=== PATIENT | male | born 1960 | race Caucasian/White ===

== ENCOUNTER → 2021-04-04 08:15 | Outpatient (BNVA) | payer BC, SELFPAY | PROVIDERS: Visit Provider Nurse Practitioner Family | DX: I10 Essential (primary) hypertension (principal); K21.9 Gastro-esophageal reflux disease without esophagitis; K64.9 Unspecified hemorrhoids | CPT/HCPCS: 80053; 80061; 82306; 82607; 84443; 85025 ==

== ENCOUNTER → 2021-06-20 10:08 | Outpatient (BNVA) | payer MEDICAID, SELFPAY | PROVIDERS: Visit Provider Nurse Practitioner Family | DX: Z20.822 Contact with and (suspected) exposure to COVID-19 (principal); Z11.52 Encounter for screening for COVID-19 | CPT/HCPCS: 87635 ==

== ENCOUNTER → 2021-09-17 10:12 | Outpatient (BNVA) | payer MEDICAID, SELFPAY | PROVIDERS: Visit Provider Nurse Practitioner Family | DX: I10 Essential (primary) hypertension (principal); G62.9 Polyneuropathy, unspecified; R07.9 Chest pain, unspecified; G47.00 Insomnia, unspecified; E78.00 Pure hypercholesterolemia, unspecified; E55.9 Vitamin D deficiency, unspecified; G89.29 Other chronic pain; K21.9 Gastro-esophageal reflux disease without esophagitis; M54.59 Other low back pain; Z68.27 Body mass index [BMI] 27.0-27.9, adult; F17.210 Nicotine dependence, cigarettes, uncomplicated | CPT/HCPCS: 80053; 80061 ==

== ENCOUNTER → 2021-12-18 11:47 | Outpatient (BNVA) | payer MEDICAID, SELFPAY | PROVIDERS: Visit Provider Nurse Practitioner Family | DX: E55.9 Vitamin D deficiency, unspecified (principal); I10 Essential (primary) hypertension; K21.9 Gastro-esophageal reflux disease without esophagitis; G47.00 Insomnia, unspecified; M79.10 Myalgia, unspecified site; M25.50 Pain in unspecified joint; M25.559 Pain in unspecified hip; M25.569 Pain in unspecified knee; M54.9 Dorsalgia, unspecified; E78.00 Pure hypercholesterolemia, unspecified; G62.9 Polyneuropathy, unspecified | CPT/HCPCS: 80053; 85651; 86140; 86200; 86431; 86705; 86706; 86709; 86803; 87340 ==

== ENCOUNTER → 2022-04-17 13:07 | Outpatient (BNVA) | payer MEDICAID, SELFPAY | PROVIDERS: Visit Provider Nurse Practitioner Family | DX: Z12.5 Encounter for screening for malignant neoplasm of prostate (principal); E78.00 Pure hypercholesterolemia, unspecified; G62.9 Polyneuropathy, unspecified; E55.9 Vitamin D deficiency, unspecified; I10 Essential (primary) hypertension; R10.9 Unspecified abdominal pain; N40.0 Benign prostatic hyperplasia without lower urinary tract symptoms; R11.0 Nausea; K57.92 Diverticulitis of intestine, part unspecified, without perforation or abscess without bleeding; U07.1 COVID-19 | CPT/HCPCS: 80053; 80061; 82306; G0103 ==

== ENCOUNTER → 2022-04-28 12:06 | Outpatient (BNVA) | payer MEDICAID, SELFPAY | PROVIDERS: Visit Provider Nurse Practitioner Family | DX: R11.0 Nausea (principal); K57.92 Diverticulitis of intestine, part unspecified, without perforation or abscess without bleeding; K58.9 Irritable bowel syndrome, unspecified; K59.00 Constipation, unspecified; R10.9 Unspecified abdominal pain; R93.5 Abnormal findings on diagnostic imaging of other abdominal regions, including retroperitoneum | CPT/HCPCS: 80053; 82150; 83690 ==

== ENCOUNTER → 2022-08-20 11:09 | Outpatient (BNVA) | payer MEDICAID, SELFPAY | PROVIDERS: Visit Provider Nurse Practitioner Family | DX: R53.83 Other fatigue (principal); R53.1 Weakness; F32.A Depression, unspecified; R51.9 Headache, unspecified | CPT/HCPCS: 80053; 80061; 82306; 84403; 84443 ==

== ENCOUNTER → 2023-01-01 13:44 | Outpatient (BNVA) | payer MEDICAID, SELFPAY | PROVIDERS: Visit Provider Nurse Practitioner Family | DX: R53.1 Weakness (principal); R53.83 Other fatigue; E55.9 Vitamin D deficiency, unspecified; E78.5 Hyperlipidemia, unspecified | CPT/HCPCS: 80053; 80061; 82306; 82607; 82746; 84402; 84403 ==

== ENCOUNTER 2023-01-20 12:20 | Outpatient (CLI) | payer MEDICAID, SELFPAY ==
--- NOTE | 2023-01-20 12:27 | MR_ITS ---
WS: [id number] MRI THORACIC SPINE with and without contrast. HISTORY: PAIN/NUMBNESS/SPINAL TENDERNESS COMPARISON: None available. TECHNIQUE: Multiplanar sequences are performed in sagittal and axial planes. Postcontrast imaging. Mu ltiHance 20 mL. Very mild increase in thoracic kyphosis. Disc spaces are very mildly narrowed and desiccated througho ut. No fracture or marrow edema. T1-2: Normal. T2-3: Normal. T3-4: Normal. T4-5: Normal. T5-6: Shallow RIGHT paracentral disc protrusion with mild deformity the ventral CSF and cord. Mild f oraminal stenosis and facet arthritis. T6-7: Shallow LEFT paracentral disc protrusion. T7-8: Shallow RIGHT paracentral disc protrusion and mild facet arthritis. T8-9: Bilateral facet arthritis and foraminal narrowing. T9-10: Mild foraminal narrowing and facet arthritis. T10-11: Mild RIGHT and moderate LEFT foraminal stenosis. LEFT foraminal nerve root sleeve diverticul um. T11-12: Bilateral mild foraminal stenosis at the LEFT nerve root sleeve diverticulum. No discitis or osteomyelitis. No enhancement along the cord. No masses. MR/MR thoracic spine wo/w [id number] IMPRESSION: 1. No significant high-grade central or foraminal stenosis. 2. Multiple small disc protrusions as above. Most significant disc protrusion at T5-6 causing mild deformity of the ventral CSF and cord. 3. Facet joint arthritis and foraminal narrowing from T5-6 through T11-12. Mos t significant facet arthritis at T10-11. 4. No cord enhancement.
--- NOTE | 2023-01-20 12:27 | MR_ITS ---
WS: [id number] MRI LUMBAR SPINE NONCONTRAST HISTORY: PAIN/TENDERNESS/SPINAL TENDERNESS COMPARISON: None available. TECHNIQUE: Sagittal and axial multisequence imaging is submitted. Mild disc bulging and facet arthropathy in the cervical spine. Component of cervical stenosis at C4-5 , C5-6 and C6-7. Normal lumbar alignment with no compression fractures or marrow edema. Disc spaces and vertebral body heights are well-preserved. Conus terminates normally at L1-2 disc level. L1-L2: Bilateral facet arthritis, RIGHT greater than LEFT. No stenosis. Ligamentum flavum and facet a rthritis. No high-grade stenosis. L2-L3: Mild annular disc bulging with mild disc encroachment upon the subarticular recesses and jann inal narrowing. Mild facet arthritis. No significant stenosis. L3-L4: Mild annular disc bulging encroaching upon the subarticular recesses and the traversing L4 ner ve roots. Mild foraminal narrowing. Moderate facet arthritis. L4-L5: Mild annular disc bulging with a disc encroaching upon the subarticular recesses and impinging upon the traversing L4 nerve roots. Moderate ligamentum flavum and facet arthritis. Mild foraminal s tenosis. L5-S1: Central disc protrusion. Mild deformity the ventral thecal sac. No disc contacting the S1 nerv e roots. Bilateral mild facet arthritis. Paravertebral soft tissues are normal. MR/MR lumbar spine wo con* [id number] IMPRESSION: 1. No high-grade central or foraminal stenosis. 2. Multilevel mild to moderate facet joint arthritis throughout the lumbar spi ne. 3. Mild encroachment upon the subarticular recesses at L3-4 and L4-5. No signi ficant stenosis. Most significant impingement upon the traversing L4 nerve root s. 4. No focal disc protrusions.
[2023-01-20] MEDS: gadobenate dimeglumine 20 mL vial IV (14:24)
== END 2023-01-20 12:21 | disposition home or self-care (01) ==
PROVIDERS: PCP Nurse Practitioner Family; Visit Provider Nurse Practitioner Family
DX: M51.24 Other intervertebral disc displacement, thoracic region (principal); G62.9 Polyneuropathy, unspecified; M47.814 Spondylosis without myelopathy or radiculopathy, thoracic region; M48.04 Spinal stenosis, thoracic region; M47.817 Spondylosis without myelopathy or radiculopathy, lumbosacral region
CPT/HCPCS: 72148; 72157; 80053; 80061; 82306; 82607; 82746; 84402; 84403; A9577

== ENCOUNTER → 2023-04-14 11:06 | Outpatient (BNVA) | payer MEDICAID, SELFPAY | PROVIDERS: PCP Nurse Practitioner Family; Visit Provider Nurse Practitioner Family | DX: I10 Essential (primary) hypertension (principal) | CPT/HCPCS: 80053 ==

== ENCOUNTER → 2023-09-28 10:56 | Outpatient (BNVA) | payer MEDICAID, SELFPAY | PROVIDERS: PCP Nurse Practitioner Family; Visit Provider Nurse Practitioner Family | DX: Z12.5 Encounter for screening for malignant neoplasm of prostate (principal); E78.5 Hyperlipidemia, unspecified; E55.9 Vitamin D deficiency, unspecified; F32.A Depression, unspecified; I10 Essential (primary) hypertension | CPT/HCPCS: 80053; 80061; 85025; G0103 ==

== ENCOUNTER → 2023-11-10 10:25 | Outpatient (BNVA) | payer MEDICAID, SELFPAY | PROVIDERS: PCP Nurse Practitioner Family; Visit Provider Nurse Practitioner Family | DX: M25.50 Pain in unspecified joint (principal) | CPT/HCPCS: 80053; 85025; 85651; 86038; 86140; 86200; 86431 ==

== ENCOUNTER 2024-03-31 10:56 | Emergency (ER) | payer MEDICAID, SELFPAY ==
[2024-03-31 11:08] VITALS: BP 143/91; PULSE 75; RESP 18; TEMP 36.7; O2SAT 95; BMI 27.3
--- NOTE | 2024-03-31 11:09 | ECG_ITS ---
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 Measurements Intervals [place] Rate: 74 P: 72 MO: 167 QRS: 42 QRSD: 94 T: 68 QT: 390 QTc: 434 Interpretive Statements SINUS RHYTHM POSSIBLE LEFT ATRIAL ENLARGEMENT [-0.1mV P-WAVE IN V1/V2] NONSPECIFIC T-WAVE ABNORMALITY INTERPRETATION BASED ON A DEFAULT AGE OF 40 YEARS No previous ECG available for comparison Electronically Signed On 04-01-2024 18:06:42 CDT by Janeen Cota M.D. [email or web address] regional medical [email or web address] medical [email or web address]/store/[id number] f
--- NOTE | 2024-03-31 11:09 | XR_ITS ---
WS: [id number] Exam: XR chest 1V portable [id number] Date/Time of Exam: 03/31/2024 11:23 AM Reason For Exam: cp No priors. The lungs are fully inflated and clear. Normal cardiomediastinal silhouette. No pleural effusions. Si gns of median sternotomy with wires and plate and screw fixation. Bony structures are intact. XR/XR chest 1V portable [id number] IMPRESSION: 1. No acute cardiopulmonary process.
--- NOTE | 2024-03-31 11:18 | ED_ITS ---
HPI - General Adult 2 General: Chief complaint: General Medical Stated complaint: high BP Time Seen by Provider: 03/31/24 11:00 Source: patient Mode of arrival: ambulatory Limitations: no limitations History of Present Illness: 63-year-old male has a history of lazo ry disease. States over the last week he has been having some hypertension along with intermittent chest pains send the pains been sharp he had some pain last night denies any pain currently denies any shortness of breath denies any vomiting or diarrhea. Associated symptoms: Reports chest pain; Deny dyspnea, headache(s), nausea, rash or vomiting Related Data Home Medications Medication Instructions Recorded Confirmed amiodarone 200 mg tablet 200 mg PO DAILY 03/31/24 03/31/24 aspirin 81 mg tablet,delayed 81 mg PO QAM 03/31/24 03/31/24 release diphenhydramine HCl 25 mg capsule 50 mg PO BID PRN allergies 03/31/24 03/31/24 (Benadryl) esomeprazole magnesium 20 mg 20 mg PO DAILY 03/31/24 03/31/24 capsule,delayed release (Nexium 24HR) gabapentin 400 mg capsule 800 mg PO BID 03/31/24 03/31/24 simvastatin 20 mg tablet 20 mg PO QPM 03/31/24 03/31/24 tamsulosin 0.4 mg capsule (Flomax) 0.4 mg PO QAM 03/31/24 03/31/24 tizanidine 4 mg tablet 4 mg PO TID PRN Muscle Spasticity 03/31/24 03/31/24 Previous Rx's Medication Instructions Recorded ergocalciferol (vitamin D2) 1,250 1,250 mcg PO .weekly #12 caps 03/23/24 mcg (50,000 unit) capsule lisinopril 10 mg tablet 10 mg PO DAILY 90 days #90 tabs 03/23/24 nitroglycerin 0.4 mg sublingual 0.4 mg sublingual Q5M PRN chest 03/31/24 tablet pain #20 tabs Allergies Allergy/AdvReac Type Severity Reaction Status Date / Time Penicillins Allergy ALGY-Anaphy Verified 08/20/23 10:44 laxis Review of Systems 2 Const: Denies: fever(s), chills, body aches or change in appetite ENMT: Denies: throat pain or dental pain Card: Reports: chest pain Resp: Denies: dyspnea GI: Denies: abdominal pain, nausea, vomiting or diarrhea : Denies: dysuria Musc: Denies: neck pain or back pain Skin/Breast: Denies: rash Neuro: Denies: headache(s) Psych: Denies: depression Sb/Lymph: Denies: easy bruising All/Imm: Denies: urticaria PFSH ED 2 PFSH: Medical History History of hiatal hernia Chronic pain GERD (gastroesophageal reflux disease) Hypertension Surgical History Status post colonoscopy History of left inguinal hernia repair Hx of arthroscopy of right knee Hx of hernia repair Family History Father , prostate CAD (coronary artery disease) Cancer Mother , age 56; lung CAD (coronary artery disease) Cancer Denies family history of Diabetes Clotting disorder Psychiatric illness Anesthesia complication Bleeding disorder Hypertension Stroke Social History Smoking and tobacco/nicotine status: never used tobacco/nicotine Quit status (tobacco/nicotine): has quit using Former quit date comment: smoked 15 yrs Second hand smoke exposure: Yes Alcohol intake: current Alcohol intake frequency: few times a week Alcohol type: beer Substance/Drug Use: never Caregiver/support person: Yes Lives independently: Yes Household members: spouse Marital status: service: No Current occupational status: disabled Current gender identity: Male Special lenin needs: No Agree to transfusion: Yes Physical Exam 2 Const: COMMON NORMALS: no acute distress, patient oriented x3 and healthy appearing HENMT: COMMON NORMALS: normocephalic and atraumatic HEAD & SCALP: n ormocephalic and atraumatic Neck/C-Spine: COMMON NORMALS: full ROM and supple Chest: COMMONS NORMALS: normal inspection of the chest and normal palpation of entire chest wall Resp: COMMON NORMALS: normal respiratory effort, No retractions, No use of accessory muscles and clear to auscultation bilaterally AUSCULTATION: clear to auscultation bilaterally Cardio: COMMON NORMALS: regular rate, regular rhythm and No murmurs present (Cardio) RATE: regular rate RHYTHM: regular rhythm GI: COMMON NORMALS: Normal to inspection, nondistended, normoactive bowel sounds present, Soft to palpation, non-tender and no masses PALPATION: Yes Soft to palpation Extremity: COMMON NORMALS: normal to inspection and full ROM Neuro: COMMON NORMALS: patient oriented x3, moves all extremities and no focal motor deficits Psych: COMMON NORMALS: mental status grossly normal, Normal thought process present and cooperative THOUGHT PROCESS: Normal thought process present Skin: COMMON NORMALS: no rashes or lesions noted and no wounds GENERAL SKIN EXAM: no rashes or lesions noted Course 2 Vital Signs: Vital signs: Vital Signs Temperature 98.1 F 03/31/24 11:08 Pulse Rate 65 03/31/24 13:51 Respiratory Rate 18 03/31/24 13:03 Blood Pressure 127/76 03/31/24 13:03 Pulse Oximetry 95 03/31/24 13:03 Oxygen Delivery Me thod Room Air 03/31/24 12:18 MDM - General Adult Medical Decision Making Patient presents for chest pain has been going on for weeks atypical his troponins here are negative he has no signs of ACS no signs of dissection we will get him follow-up with cardiology he is to return if worsening he understands agrees plan Medical Records I reviewed the patient's medical records. Lab Data I reviewed the patient's lab results. 03/31/24 11:09 03/31/24 11:09 Radiology Impressions Chest X-Ray 03/31/24 11:09 IMPRESSION: 1. No acute cardiopulmonary process. Laboratory Results WBC 8.55 10^3/uL (3.29-11.43) 03/31/24 11:09 RBC 5.25 10^6/uL (3.85-5.65) 03/31/24 11:09 Hgb 16.60 g/dL (11.27-16.99) 03/31/24 11:09 Hct 46.1 % (37-53) 03/31/24 11:09 MCV 87.8 fl (82-101) 03/31/24 11:09 MCH 31.6 pg (27-33) 03/31/24 11:09 MCHC 36.0 g/dL (30-55) 03/31/24 11:09 RDW 11.8 % (12.1-15.1) L 03/31/24 11:09 Plt Count 209 10^3/cmm (157-399) 03/31/24 11:09 MPV 9.3 fL (7.4-10.4) 03/31/24 11:09 Neut % (Auto) 56.7 % 03/31/24 11:09 Lymph % (Auto) 30.5 % 03/31/24 11:09 [place] % (Auto) 5.3 % 03/31/24 11:09 Eos % (Auto) 6.2 % 03/31/24 11:09 Baso % (Auto) 1.1 % 03/31/24 11:09 Neut # (Auto) 4.85 10^3/uL (1.8-7.7) 03/31/24 11:09 Lymph # (Auto) 2.6 10^3/uL (0.8-4.8) 03/31/24 11:09 [place] # (Auto) 0.5 10^3/uL (0.2-0.9) 03/31/24 11:09 Eos # (Auto) 0.5 10^3/uL (0.0-0.8) 03/31/24 11:09 Baso # (Auto) 0.1 10^3/uL (0.0-0.1) 03/31/24 11:09 Nucleated RBC % (auto) 0 % 03/31/24 11:09 Nucleated RBCs # 0.0 /100WBC 03/31/24 11:09 PT 13.00 SECONDS (12.1-14.9) 03/31/24 11:09 INR 0.95 (0.8-1.2) 03/31/24 11:09 Sodium 139 mmol/L (136-145) 03/31/24 11:09 Potassium 3.5 mmol/L (3.5-5.1) 03/31/24 11:09 Chloride 101 mmol/L (98-107) 03/31/24 11:09 Carbon Dioxide 24 mmol/L (22-29) 03/31/24 11:09 Anion Gap 17.5 (5-19) 03/31/24 11:09 BUN 17 mg/dL (8-23) 03/31/24 11:09 Creatinine 1.0 mg/dL (0.7-1.2) 03/31/24 11:09 GFR Calculation 75.7 mL/min (90-130) L 03/31/24 11:09 Glucose 134 mg/dL (65-115) H 03/31/24 11:09 Calculated Osmolality 292 mOsm/kg (285-295) 03/31/24 11:09 Calcium 8.9 mg/dL (8.5-10.5) 03/31/24 11:09 Total Bilirubin 0.7 mg/dL (0.15-1.2) 03/31/24 11:09 AST 22 U/L (0-40) 03/31/24 11:09 ALT 25 U/L (0-41) 03/31/24 11:09 Alkaline Phosphatase 67 U/L (40-130) 03/31/24 11:09 Troponin T Baseline < 6 ng/L (0-15) 03/31/24 11:09 Troponin T 120 Minute 6.28 ng/L (0-15) 03/31/24 13:41 Delta Troponin T 0.30053 ABS# (0-10) 03/31/24 13:41 Total Protein 7.0 g/dL (6.6-8.7) 03/31/24 11:09 Albumin 4.1 g/dL (3.5-5.2) 03/31/24 11:09 Globulin 2.9 g/dL (1.3-4.6) 03/31/24 11:09 Lipase 29 U/L (13-60) 03/31/24 11:09 All radiology interpretation(s) finalized by discharge EKG Data EKG 1: I personally reviewed and interpreted this EKG as follows: EKG interpretation date: 03/31/24 EKG interpretation time: 11:05 Interpretation: nsr hr [address] or t wave abnormalities qrs 94 qtc 418 Computer generated interpretation: Chest X-Ray 03/31/24 11:09 IMPRESSION: 1. No acute cardiopulmonary process. EKG 2: I personally reviewed and interpreted this EKG as follows: EKG interpretation date: 03/31/24 EKG interpretation time: 12:57 Interpretation: sinus yamilex hr [address] elevation qrs 93 qtc 438 Computer generated interpretation: Chest X-Ray 03/31/24 11:09 IMPRESSION: 1. No acute cardiopulmonary process. Discharge Plan Discharge Patient Disposition: Home Clinical Impression: Chest pain Condition: Stable Prescriptions: Continued nitroglycerin 0.4 mg tablet, sublingual 0.4 mg sublingual Q5M PRN (Reason: chest pain) Qty: 20 0RF Rx Instructions: do not exceed 3 doses per episode No Action ergocalciferol (vitamin D2) 1,250 mcg (50,000 unit) capsule 1,250 mcg PO .weekly Qty: 12 1RF Rx Instructions: on lisinopril 10 mg tablet 10 mg PO DAILY 90 Days Qty: 90 0RF Aspir-81 81 mg Tablet,Delayed Release (Dr/Ec) 81 mg PO QAM Benadryl 25 mg Capsule 50 mg PO BID PRN (Reason: allergies) Nexium 24HR 20 mg Capsule,Delayed Release(Dr/Ec) 20 mg PO DAILY tizanidine 4 mg tablet 4 mg PO TID PRN (Reason: Muscle Spasticity) amiodarone 200 mg tablet 200 mg PO DAILY gabapentin 400 mg capsule 800 mg PO BID Flomax 0.4 mg capsule 0.4 mg PO QAM simvastatin 20 mg tablet 20 mg PO QPM Discharge Orders: Discharge ED (Routine); Ordered 03/31/24 Ordered By: Darrick Cooley Referrals: Tata Dowling NP [Primary Care Provider] - Discharge Diet: Advance as tolerated Discharge Activity: Resume usual activity Patient Instructions: Chest Pain (ED) Coding Level of Care Code ED Body Builder for Nuvia Cazares
[2024-03-31 11:22] LABS: Basophils # 0.1 10^3/uL (0.0-0.1); Basophils % 1.1 %; Eosinophils # 0.5 10^3/uL (0.0-0.8); Eosinophils % 6.2 %; Hematocrit 46.1 % (37-53); Lymphocytes # 2.6 10^3/uL (0.8-4.8); Lymphocytes % 30.5 %; Mean Corpuscular Hemoglobin 31.6 pg (27-33); Mean Corpuscular Volume 87.8 fl (82-101); Mean Platelet Volume 9.3 fL (7.4-10.4); Monocytes # 0.5 10^3/uL (0.2-0.9); Monocytes % 5.3 %; Neutrophils # 4.85 10^3/uL (1.8-7.7); Neutrophils % 56.7 %; Nucleated Red Blood Cells % 0 %; Platelet Count 209 10^3/cmm (157-399); Red Blood Count 5.25 10^6/uL (3.85-5.65); Red Cell Distribution Width 11.8 % (12.1-15.1); White Blood Count 8.55 10^3/uL (3.29-11.43)
[2024-03-31 11:35] LABS: INR 0.95 (0.8-1.2)
[2024-03-31 11:40] VITALS: BP 143/91; PULSE 63; O2SAT 93
[2024-03-31 11:45] LABS: Alanine Aminotransferase 25 U/L (0-41); Albumin Level 4.1 g/dL (3.5-5.2); Alkaline Phosphatase 67 U/L (40-130); Aspartate Amino Transferase 22 U/L (0-40); Blood Urea Nitrogen 17 mg/dL (8-23); Calcium 8.9 mg/dL (8.5-10.5); Carbon Dioxide 24 mmol/L (22-29); Chloride 101 mmol/L (98-107); Creatinine Clr Calc Pharmacy 79.8404; Globulin 2.9 g/dL (1.3-4.6); Glomerular Filtration Rate 75.7 mL/min (90-130); Glucose 134 mg/dL (65-115); Lipase 29 U/L (13-60); Osmolality Calculated 292 mOsm/kg (285-295); Sodium 139 mmol/L (136-145); Total Bilirubin 0.7 mg/dL (0.15-1.2)
[2024-03-31 11:51] LABS: Troponin(5th) Baseline < 6 ng/L (0-15)
[2024-03-31 12:07] LABS: Anion Gap 17.5 (5-19); Potassium 3.5 mmol/L (3.5-5.1)
[2024-03-31 12:18] VITALS: BP 116/74; PULSE 55; O2SAT 93
--- NOTE | 2024-03-31 12:57 | ECG_ITS ---
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 Measurements Intervals [place] Rate: 51 P: 56 SC: 188 QRS: 40 QRSD: 93 T: 35 QT: 460 QTc: 427 Interpretive Statements SINUS BRADYCARDIA NONSPECIFIC T-WAVE ABNORMALITY Compared to ECG 03/31/2024 11:05:45 Sinus rhythm no longer present T-wave abnormality still present Electronically Signed On 04-01-2024 18:21:17 CDT by Janeen Cota M.D. [id number]
[2024-03-31 13:03] VITALS: BP 127/76; PULSE 56; RESP 18; O2SAT 95
[2024-03-31] MEDS: acetaminophen 325 mg Tablet 650 MG PO (13:50)
[2024-03-31 13:51] VITALS: PULSE 65
[2024-03-31 14:14] LABS: Troponin 5 2HR 6.28 ng/L (0-15); Troponin 5 2HR Delta 0.28001 ABS# (0-10)
[2024-03-31 14:30] VITALS: BP 142/80; PULSE 54; RESP 16; O2SAT 98
--- NOTE | 2024-03-31 15:40 | DCPLANNER ---
messaged cardiology for er f/u
== END 2024-03-31 14:34 | disposition home or self-care (01) ==
PROVIDERS: Emergency Provider Emergency Medicine; PCP Nurse Practitioner Family
DX: R07.9 Chest pain, unspecified (principal); Z79.82 Long term (current) use of aspirin; R00.1 Bradycardia, unspecified; Z87.891 Personal history of nicotine dependence; I10 Essential (primary) hypertension
CPT/HCPCS: 36415; 71045; 80053; 83690; 84484; 85025; 85610; 93005; 99285

== ENCOUNTER → 2024-05-05 13:46 | Outpatient (BNVA) | payer MEDICAID, SELFPAY | PROVIDERS: PCP Nurse Practitioner Family; Visit Provider Orthopaedic Surgery | DX: M54.9 Dorsalgia, unspecified (principal) | CPT/HCPCS: 72110 ==